=== PATIENT | female | born 1930 | race Caucasian/White ===

== ENCOUNTER 2020-04-13 09:01 | Day surgery (SDC) | payer MEDICARE, OTHER | END 2020-04-13 12:00 | disposition home or self-care (01) | LOC: MOI US 09:01 → MOI MAM 09:30 → MOI US 09:30 | DX: C50.811 Malignant neoplasm of overlapping sites of right female breast (principal); E78.5 Hyperlipidemia, unspecified; I12.9 Hypertensive chronic kidney disease with stage 1 through stage 4 chronic kidney disease, or unspecified chronic kidney disease; N18.9 Chronic kidney disease, unspecified; Z17.0 Estrogen receptor positive status [ER+]; Z79.82 Long term (current) use of aspirin; Z79.899 Other long term (current) drug therapy; Z66 Do not resuscitate | CPT/HCPCS: 19083; 77065; 88305; 88342; 88360; A4648; G0279 ==

== ENCOUNTER 2020-04-24 08:32 | Day surgery (SDC) | payer MEDICARE, OTHER | END 2020-04-24 23:14 | disposition home or self-care (01) | LOC: MOI US 08:32 | DX: C50.911 Malignant neoplasm of unspecified site of right female breast (principal) | CPT/HCPCS: 19285; 19286; 77065 ==